=== PATIENT | female | born 1925 | race Caucasian/White ===

== ENCOUNTER → 2017-02-27 | Outpatient (CLI) | payer OTHER ==
--- NOTE | ~2017-02-27 | CT57 ---
[facility] A Service of [facility] & [facility] RADIOLOGY TEXT RESULTS PATIENT: BLAIR PARK V LOCATION: [facility] : [birth year] UNIT #: [id number] AGE: [address]: Dusty Still MD SEX: F ORDER DR: [id number] [facility]. [place], [place] [address] [id number] O MR#: [id number] [facility] #: [id number] NAME: BLAIR PARK : 1925 SEX: F STUDY DATE/TIME: 02/27/2017 15:22 UNIT: [facility] ROOM: STUDY DESCRIPTION: CT Chest Wo Cont Attending Physician: Dusty Still M.D. Referring Physician: Dusty Still M.D. Ordering Physician: Dusty Still M.D. Primary Care Physician: Dusty Still M.D. MEDICAL IMAGING REPORT This report is preliminary unless electronic signature is present EXAM CT chest without contrast, 02/27/2017. HISTORY 89-year-old female with abnormal chest x-ray performed at doctor's office. CT to evaluate hiatal hernia. Shortness of breath for 1-2 years. Hypertension. COMPARISON There is no prior imaging study at this institution for comparison. The patient's outside chest x-ray (location not designated) is not available for correlation at the time of this interpretation. The report from outside imaging is not available, either. PROCEDURE 5-mm axial images from the thoracic inlet through the upper abdomen without contrast. Sagittal and coronal reformatted images were obtained. FINDINGS Type IV paraesophageal hiatal hernia is demonstrated with the entirety of the stomach above the level of the diaphragm. It has an organoaxial volvulus configuration with the stomach flipped along its longitudinal axis, the greater curvature, lying cephalad to the lesser curvature. There is a moderate amount of food stuff within the intrathoracic stomach. Passive atelectatic changes are demonstrated within the adjacent lung bases. Mild emphysematous changes are present. Minimal subpleural fibrotic changes demonstrated within the right middle lobe laterally. A 9-mm noncalcified nodule is demonstrated within the left upper lobe (series 4 image 11). [facility] A Service of [facility] & [facility] RADIOLOGY TEXT RESULTS PATIENT: BLAIR PARK V [id number] : [birth year] UNIT #: [id number] AGE: [address]: Dusty Still MD SEX: F ORDER DR: No pathologically enlarged lymph nodes are identified. Benign calcified lymph nodes are present within the mediastinum and right hilum. Heart size is within normal limits. Dense left anterior descending coronary artery calcification versus stent is noted. The thoracic aortic caliber is within normal limits, without aneurysm. Imaged thyroid gland is normal. Brachiocephalic artery is tortuous. 1.6-cm cyst is noted within the caudate lobe of the liver. There is a lobulated contour of each kidney, suggesting areas of cortical scarring. Pancreas is mildly atrophic. Diverticular changes are seen within the imaged colon. The adrenal glands are normal. A 1.6-cm low-density lesion is seen within the left upper quadrant of the abdomen, and is thought to arise from the pancreatic tail (series 2, image 57). There are a chronic-appearing compression deformity of the T11 vertebral body with about 46% loss of vertebral body height, but no definite bony retropulsion or subluxation is seen. No acute or suspicious osseous lesions are identified. There are degenerative changes of both shoulders, right greater than left. IMPRESSION 1. Large type IV paraesophageal hiatal hernia with organoaxial valgus configuration. This entire stomach is herniated above the level of the diaphragm, with the greater curvature of the stomach located cephalad or above the level of the lesser curvature. 2. Passive atelectatic changes within the lung bases secondary to aforementioned gastric herniation. 3. 9-mm noncalcified nodule is present within the left upper lobe of the lung. Correlation with outside imaging studies is recommended, if available, to determine the chronicity or stability of the finding. Alternatively, short-term CT chest followup in 3 months or PET/CT would be recommended as the next step in evaluation, following the Js Society criteria for pulmonary nodule management. 4. 1.6-mm low-density lesion in the left upper quadrant of the abdomen thought to arise from the pancreatic tail. Correlation with outside CT abdomen imaging studies recommended, if available, to determine the chronicity of this finding. Alternately, CT abdomen without and with contrast, pancreatic mass protocol, would be recommended. 5. Chronic T11 compression fracture. No acute or suspicious osseous lesions. 6. Dense calcification versus stent in the left anterior descending coronary artery. Please correlate with cardiac history. 7. Additional incidental CT findings include: Mild emphysematous change, caudate lobe liver cyst, bilateral renal cortical scarring, colonic diverticulosis. [facility]. [facility] A Service of [facility] RADIOLOGY TEXT RESULTS PATIENT: BLAIR PARK V LOCATION: [facility] #: [id number] : [birth year] UNIT #: [id number] AGE: [address]: Dusty Still MD SEX: F ORDER DR: Dictated by... Katie Spears M.D. THIS IS AN ELECTRONICALLY VERIFIED REPORT Katie Spears M.D. at 03/01/2017 8:54 AM Joao TD: 02/28/2017 15:00 JOB #: [id number] MEDICAL IMAGING REPORT Page 1 of 1 COPY
== END | disposition home or self-care (01) ==
LOC: CCAT 14:46
DX: R91.8 Other nonspecific abnormal finding of lung field (principal); K44.9 Diaphragmatic hernia without obstruction or gangrene; J98.11 Atelectasis; R91.1 Solitary pulmonary nodule; J98.4 Other disorders of lung; M48.54XA Collapsed vertebra, not elsewhere classified, thoracic region, initial encounter for fracture; J43.9 Emphysema, unspecified; K76.89 Other specified diseases of liver; N28.89 Other specified disorders of kidney and ureter; K57.30 Diverticulosis of large intestine without perforation or abscess without bleeding
CPT/HCPCS: 71250